=== PATIENT | female | born 1960 ===

== ENCOUNTER 2017-06-18 12:37 | Emergency (ER) | payer BC ==
[2017-06-18 12:59] VITALS: O2SAT 100
[2017-06-18 13:56] LABS: SQUAMOUS EPITHIAL 21 /hpf (0-5); URINE BACTERIA MOD (<OCC); URINE BILIRUBIN NEGATIVE (NEGATIVE); URINE BLOOD LARGE (NEGATIVE); URINE CLARITY TURBID (Clear); URINE COLOR AMBER (YELLOW); URINE GLUCOSE (UA) NEG (Normal); URINE LEUKOCYTE ESTERASE MOD Leu/uL (Negative); URINE NITRATE NEGATIVE (NEGATIVE); URINE PROTEIN 100 mg/dL (NEGATIVE); URINE UROBILINOGEN 0.2-1.0 mg/dL (0.2-1.0)
--- NOTE | 2017-06-18 14:23 | ED PDOC ---
HPI: Female Pain Time Seen by Provider: 06/18/17 13:11 Chief Complaint (Nursing): Back Pain Chief Complaint (Provider): abscess History/Exam Limitations: no limitations Onset/Duration Of Symptoms: Days (x3) Current Symptoms Are (Timing): Still Present Past Medical History Reviewed: Historical Data, Nursing Documentation, Vital Signs Vital Signs: Last Vital Signs Temp 98.6 F 06/18/17 12:57 Pulse 58 L 06/18/17 12:57 Resp 16 06/18/17 12:57 BP 147/77 06/18/17 12:57 Pulse Ox 100 06/18/17 12:57 - Medical History PMH: No Chronic Diseases - Surgical History Surgical History: Cholecystectomy Denies: No Surg Hx - Family History Family History: States: Unknown Family Hx - Social History Current smoker - smoking cessation education provided: No Alcohol: None Drugs: Denies - Allergies Allergies/Adverse Reactions: Allergies Allergy/AdvReac Type Severity Reaction Status Date / Time No Known Allergies Allergy Verified 06/18/17 12:57 Review of Systems ROS Statement: Except As Marked, All Systems Reviewed And Found Negative Constitutional: Negative for: Fever, Chills Gastrointestinal: Negative for: Vomiting, Abdominal Pain Genitourinary Female: Positive for: Dysuria, Frequency (and urgency), Other ( left groin abscess with drainage). Negative for: Hematuria Physical Exam - Reviewed Nursing Documentation Reviewed: Yes Vital Signs Reviewed: Yes - Physical Exam Appears: Positive for: Well, Non-toxic, No Acute Distress Gastrointestinal/Abdominal: Positive for: Normal Exam, Soft. Negative for: Tenderness Pelvic Exam: Positive for: Discharge (clear minimal serosanguinous of left groin abscess), Lesions (left groin abscess). Negative for: External Exam Normal Neurologic/Psych: Positive for: Alert (x3), Oriented - ECG O2 Sat by Pulse Oximetry: 100 (RA) Pulse Ox Interpretation: Normal Medical Decision Making Medical Decision Making: Initial Impression: Groin abscess Initial Plan: * CT ABD/pelvis with IV contrast * CMP * CBC * Urine C&S * Urinalysis ~ Scribe Attestation: Documented by Julissa Carr, acting as a scribe for Venus Pierce MD. Provider Scribe Attestation: All medical record entries made by the Scribe were at my direction and personally dictated by me. I have reviewed the chart and agree that the record accurately reflects my personal performance of the history, physical exam, medical decision making, and the department course for this patient. I have also personally directed, reviewed, and agree with the discharge instructions and disposition. Disposition - Disposition
--- NOTE | 2017-06-18 14:24 | ED PDOC ---
HPI: Back Time Seen by Provider: 06/18/17 13:05 Chief Complaint (Nursing): Back Pain Chief Complaint (Provider): Back Pain History Per: Patient History/Exam Limitations: no limitations Onset/Duration Of Symptoms: Days (x 3) Current Symptoms Are (Timing): Still Present Additional Complaint(s): 56 year old female who presents tot he ED complaining of right flank pain, onset 3 days. She is also experiencing associated nausea and vomiting. Denies hematuria and dysuria. PMD: Dr. Kareem Meeks MD Past Medical History Reviewed: Historical Data, Nursing Documentation, Vital Signs Vital Signs: Last Vital Signs Temp 98.6 F 06/18/17 12:57 Pulse 58 L 06/18/17 12:57 Resp 16 06/18/17 12:57 BP 147/77 06/18/17 12:57 Pulse Ox 100 06/18/17 12:57 - Medical History PMH: No Chronic Diseases - Surgical History Surgical History: Cholecystectomy Other surgeries: Tubal ligation - Family History Family History: States: Unknown Family Hx - Home Medications Home Medications: Ambulatory Orders Medication Instructions Recorded Ciprofloxacin HCl [Cipro] 500 mg PO BID #20 tab 06/18/17 Ibuprofen [Motrin] 600 mg PO Q6H PRN #20 tab 06/18/17 Tamsulosin [Flomax] 0.4 mg PO DAILY #14 cap 06/18/17 - Allergies Allergies/Adverse Reactions: Allergies Allergy/AdvReac Type Severity Reaction Status Date / Time No Known Allergies Allergy Verified 06/18/17 12:57 Review of Systems ROS Statement: Except As Marked, All Systems Reviewed And Found Negative Gastrointestinal: Positive for: Nausea, Vomiting Genitourinary Female: Negative for: Dysuria, Hematuria Physical Exam - Reviewed Nursing Documentation Reviewed: Yes Vital Signs Reviewed: Yes - Physical Exam Appears: Positive for: Non-toxic, No Acute Distress Head Exam: Positive for: ATRAUMATIC, NORMOCEPHALIC Skin: Positive for: Normal Color, Warm, Dry Eye Exam: Positive for: EOMI, Normal appearance, PERRL Neck: Positive for: Normal, Painless ROM, Supple Cardiovascular/Chest: Positive for: Regular Rate, Rhythm. Negative for: Murmur Respiratory: Positive for: Normal Breath Sounds. Negative for: Wheezing Gastrointestinal/Abdominal: Positive for: Normal Exam, Soft Back: Positive for: R CVA Tenderness Extremity: Positive for: Normal ROM Neurologic/Psych: Positive for: Alert, Oriented - Laboratory Results Result Diagrams: 06/18/17 15:30 06/18/17 15:30 - ECG O2 Sat by Pulse Oximetry: 100 (RA) Pulse Ox Interpretation: Normal Medical Decision Making Medical Decision Making: Time: 13:25 Impression: right flank pain ro stone versus pyelnophritis Initial Plan: --Abd pelvis CT --CMP --CBC --Urine cx --Urinalysis Time: 1721 --CT ABD/pelvis FINDINGS: LOWER THORAX: Moderate hiatus hernia. LIVER: Hepatic steatosis. No focal masses. No intrahepatic bile duct dilatation or perihepatic ascites. GALLBLADDER AND BILE DUCTS: Status post cholecystectomy. No abnormality is seen in the gallbladder fossa. PANCREAS: Unremarkable. No gross lesion or ductal dilatation. SPLEEN: Unremarkable. ADRENALS: Unremarkable. No mass. KIDNEYS AND URETERS: 7 mm calculus at the right ureteropelvic junction with moderate right hydronephrosis. No visible upper tract calculi. Unremarkable left kidney in ureter. VASCULATURE: Unremarkable. No aortic aneurysm. BOWEL: Unremarkable. No obstruction. No gross mural thickening. APPENDIX: Normal appendix. PERITONEUM: Unremarkable. No free fluid. No free air. LYMPH NODES: Unremarkable. No enlarged lymph nodes. BLADDER: Unremarkable. REPRODUCTIVE: Unremarkable. BONES: No acute fracture. OTHER FINDINGS: None. IMPRESSION: 7 mm calculus right ureteropelvic junction. Moderate right hydronephrosis. No upper tract calculi identified. Additional benign and/or incidental findings described above. --Patient made aware of results. will follow up outpt w urologist pt primary doc Kareem meeks aware of results and plan. agrees. Scribe Attestation: Documented by Lauren Mcknight, acting as a scribe for Venus Pierce MD Provider Scribe Attestation: All medical record entries made by the Scribe were at my direction and personally dictated by me. I have reviewed the chart and agree that the record accurately reflects my personal performance of the history, physical exam, medical decision making, and the department course for this patient. I have also personally directed, reviewed, and agree with the discharge instructions and disposition. Disposition - Clinical Impression Clinical Impression: Kidney stone - Patient ED Disposition Is Patient to be Admitted: No Counseled Patient/Family Regarding: Studies Performed, Diagnosis, Need For Followup - Disposition Referrals: Dat Brennan Jr., MD [Staff Provider] - Disposition: Routine/Home Disposition Time: 15:45 Condition: IMPROVED Additional Instructions: follow up with urologist as instructed return to the ED with any worsening or concerning symptoms. Prescriptions: Ciprofloxacin HCl [Cipro] 500 mg PO BID #20 tab Ibuprofen [Motrin] 600 mg PO Q6H PRN #20 tab PRN Reason: Pain, Moderate (4-7) Tamsulosin [Flomax] 0.4 mg PO DAILY #14 cap Instructions: Kidney Stones (ED) Forms: [employer] ([place]), [facility] ED School/Work Excuse
[2017-06-18] MEDS ORDERED: cefTRIAXone IV 1 gm in Dextros 50 ML IVPB ONE (15:27)
[2017-06-18] MEDS ORDERED: cefTRIAXone IV 1 gm in Dextros 50 ML IVPB STA (15:32)
[2017-06-18 15:44] LABS: BASO % 0.4 % (0.0-2.0); EOS % 0.1 % (0.0-4.0); HEMOGLOBIN 13.4 g/dL (12.0-16.0); LYMPH # 1.3 K/uL (1.0-4.3); LYMPH % 11.5 % (20.0-40.0); MEAN CELL VOLUME 85.9 fl (81.0-99.0); MEAN CORPUSCULAR HEMOGLOBIN 28.8 pg (27.0-31.0); MEAN CORPUSCULAR HGB CONC 33.5 g/dL (33.0-37.0); MONO # 0.5 K/uL (0.0-0.8); MONO % 4.9 % (0.0-10.0); NEUT # 9.2 K/uL (1.8-7.0); NEUT % 83.1 % (50.0-75.0); NRBC % 0.1 % (0.0-0.0); RBC 4.66 Mil/uL (3.80-5.20); RED CELL DISTRIBUTION WIDTH 13.4 % (11.5-14.5); WHITE BLOOD COUNT 11.1 K/uL (4.8-10.8)
[2017-06-18 15:53] LABS: ALBUMIN 4.6 g/dL (3.5-5.0); ALT/SGPT 40 U/L (9-52); AST/SGOT 24 U/L (14-36); BLOOD UREA NITROGEN 14 mg/dl (7-17); CALCIUM 9.6 mg/dL (8.4-10.2); GFR AFRICAN-AMERICAN > 60; GFR NON-AFRICAN AMERICAN > 60
[2017-06-18 15:56] LABS: ALB/GLOB RATIO 1.3 (1.0-2.1)
[2017-06-18] MEDS ORDERED: Iohexol 300 100 ML IJ ONE (16:14)
[2017-06-18] MEDS ORDERED: Sodium Chloride 0.9% 50 ML IV ONE (16:15)
--- NOTE | 2017-06-18 17:24 | CT ---
PROCEDURE: CT Abdomen and Pelvis with contrast HISTORY: right flank pain rule out pyelonephritis COMPARISON: None. TECHNIQUE: Contrast dose: 95 cc Omnipaque 300 Radiation dose: Total exam DLP = 1085.09 mGy-cm. This CT exam was performed using one or more of the following dose reduction techniques: Automated exposure control, adjustment of the mA and/or kV according to patient size, and/or use of iterative reconstruction technique. FINDINGS: LOWER THORAX: Moderate hiatus hernia. LIVER: Hepatic steatosis. No focal masses. No intrahepatic bile duct dilatation or perihepatic ascites. GALLBLADDER AND BILE DUCTS: Status post cholecystectomy. No abnormality is seen in the gallbladder fossa. PANCREAS: Unremarkable. No gross lesion or ductal dilatation. SPLEEN: Unremarkable. ADRENALS: Unremarkable. No mass. KIDNEYS AND URETERS: 7 mm calculus at the right ureteropelvic junction with moderate right hydronephrosis. No visible upper tract calculi. Unremarkable left kidney in ureter. VASCULATURE: Unremarkable. No aortic aneurysm. BOWEL: Unremarkable. No obstruction. No gross mural thickening. APPENDIX: Normal appendix. PERITONEUM: Unremarkable. No free fluid. No free air. LYMPH NODES: Unremarkable. No enlarged lymph nodes. BLADDER: Unremarkable. REPRODUCTIVE: Unremarkable. BONES: No acute fracture. OTHER FINDINGS: None. IMPRESSION: 7 mm calculus right ureteropelvic junction. Moderate right hydronephrosis. No upper tract calculi identified. Additional benign and/or incidental findings described above.
[2017-06-18] MEDS ORDERED: Potassium Chloride 20 mEq ER Tab PO ONE ×2 (17:52→17:53)
[2017-06-18 18:01] VITALS: BP 136/80; PULSE 78; RESP 18; TEMP 98.1
== END 2017-06-18 18:02 | disposition home or self-care (01) ==
LOC: H.ER 12:37
DX: N13.2 Hydronephrosis with renal and ureteral calculous obstruction (principal)
CPT/HCPCS: 74177; 80053; 81003; 81025; 85025; 87040; 87086; 96365; 99283; J0696; Q9967